=== PATIENT | female | born 1985 | race Caucasian/White ===

== ENCOUNTER 2021-03-27 15:12 | Inpatient (IN) | payer OTHER ==
[~2021-03-27] VITALS: Ht 172.7 cm; Wt 113.4 kg
[2021-03-27 15:41] LABS: HEMOGLOBIN 13.1 gm/dl (12.3-15.3); RED BLOOD COUNT 4.49 M/UL (4.00-5.10); WHITE BLOOD COUNT 8.9 K/UL (4.5-11.0)
[2021-03-27 16:05] LABS: BUN/CREATININE RATIO 26 (0-10)
[2021-03-28 09:44] LABS: HEMOGLOBIN 13.1 gm/dl (12.3-15.3); RED BLOOD COUNT 4.5 M/UL (4.00-5.10); WHITE BLOOD COUNT 6.8 K/UL (4.5-11.0)
[2021-03-28 10:11] LABS: BUN/CREATININE RATIO 20 (0-10)
[2021-03-28] MEDS ORDERED: KEPPRA 500 MG500 MG PO (16:04)
[2021-03-29 09:14] LABS: HBSAG SCREEN Negative (Negative); HEP A AB, IGM Negative (Negative); HEP B CORE AB, IGM Negative (Negative); HEP C VIRUS AB >11.0 (0.0-0.9)
== END 2021-03-28 18:06 | disposition home or self-care (01) | DRG 917 ==
LOC: EDBD 15:12 → ER1 15:12 → CDU 17:38 → PROG CARE 20:50
PROVIDERS: Emergency Medicine; Physician Assistant; ADMIT Internal Medicine
PROC: 02HV33Z Insertion of Infusion Device into Superior Vena Cava, Percutaneous Approach (ICD-10-PCS; principal; 2021-03-27)
PROC: B548ZZA Ultrasonography of Superior Vena Cava, Guidance (ICD-10-PCS; 2021-03-27)
PROC: 0BH17EZ Insertion of Endotracheal Airway into Trachea, Via Natural or Artificial Opening (ICD-10-PCS; 2021-03-27)
PROC: 5A1935Z Respiratory Ventilation, Less than 24 Consecutive Hours (ICD-10-PCS; 2021-03-27)
PROC: 4A00X4Z Measurement of Central Nervous Electrical Activity, External Approach (ICD-10-PCS; 2021-03-28)
DX: T40.712A Poisoning by cannabis, intentional self-harm, initial encounter (principal); J96.01 Acute respiratory failure with hypoxia; G92.8 Other toxic encephalopathy; T43.622A Poisoning by amphetamines, intentional self-harm, initial encounter; Z20.822 Contact with and (suspected) exposure to COVID-19; R74.01 Elevation of levels of liver transaminase levels; G40.909 Epilepsy, unspecified, not intractable, without status epilepticus
CPT/HCPCS: 31500; 36415; 36556; 36600; 51702; 70450; 70551; 71045; 80053; 80074; 80307; 81001; 82550; 82553; 82803; 83605; 83735; 83874; 84484; 84703; 85025; 87040; 93005; 94002; 95816; 96374; 99285; G0480; J1953; J2060; J2250; J2405; J2704; U0002